=== PATIENT | male | born 1965 | race Caucasian/White ===

== ENCOUNTER 2025-06-10 12:39 | Emergency (ER) | payer BC, SELFPAY ==
[2025-06-10] VITALS (7 sets, daily range): BP systolic 104–132; BP diastolic 68–87; BMI 24.9
--- NOTE | 2025-06-10 13:18 | ED.GENMED ---
History of Present Illness
General
Chief Complaint: Chest Pain
Source: patient
Exam Limitations: none
Time Seen by Provider: 06/10/25 13:14
Nursing documentation reviewed up to this point in time: agreed with
History of Present Illness
History of Present Illness:
Patient is a 59-year-old male with past medical history of STEMI status post RCA drug-eluting stent in 2015, hypothyroidism, bradycardia PVCs presents to the ER for evaluation. Patient reports Tuesday 2 days ago he was playing Zoomingo ball and has
noted himself slightly more than normal. He did feel little lightheaded when his heart rate went up. After playing he had a sensation that 'my heart was there.' He reports it was not a pain but he was just aware that 'Something felt
different.' He denies any associated shortness of breath, nausea ,vomiting, diaphoresis with this. He denies any injury. No prior history of PE DVT. No lower extremity swelling. No clotting disorder.
He denies any recent illness fever or chills. He is asymptomatic presently.
His cardiac stent was done in 2015 at [facility]. At that time he had heartburn sensation is not similar to his prior ND .
He is followed by [facility] Dr. Nj.
Past History
Past History
ED Past Medical History: Cancer (prostate cancer s/p radical prostatectomy), HTN, Hypercholesterolemia, ND and Hypothyroidism
ED Past Surgical History: Other (radical prostatectomy)
Social History
Tobacco: Non-smoker
Alcohol: None
Drug: None
Personal:
Living: with family
Employment: Employed
Family History
Family History: CAD
Phy Exam
General Physical Exam
General Presentation: no apparent distress
General age: appears stated age
General Skin: warm and dry
General Habitus: normal
General Mental: alert
General Hydration: appears well hydrated
Cardiovascular Exam
Cardiovascular Exam: no murmur, normal peripheral pulses and bradycardia
Pulmonary Exam
Pulmonary Exam: lungs clear and no respiratory distress
Neurological Exam
Neurological Exam: alert and oriented x3
Musculoskeletal Exam
Musculoskeletal Exam: full ROM
Skin Exam
Skin Exam: normal color and warm/dry
Psychiatric Exam
Psychiatric Exam: normal mood/affect
Scores
Heart Score for Chest Pain Patients
STEMI patient?: Not applicable
Course
Orders/Labs/Results
Orders:
Orders
06/10/25 12:48
Electrocardiogram (*1) Urgent
Reason for Study: Chest Pain
EKG- Treatment ONCE
06/10/25 13:09
Electrocardiogram (*1) Stat
Comment: ALREADY DONE IN ED
06/10/25 13:38
Complete Blood Count/With Diff Urgent
Comprehensive Metabolic Panel Urgent
PTT Urgent
Troponin I Urgent
06/10/25 13:53
Chest [CR Chest - 2 Views ] Urgent
Comment:
Reason For Exam: cp
06/10/25 15:11
EKG- Treatment ONCE
06/10/25 16:27
Troponin I Urgent
06/10/25 16:30
Electrocardiogram (*1) Urgent
Reason for Study: Chest Pain
Abnormal Lab Results
06/10/25
13:38
WBC 4.4 L 10^3/uL
(4.8-10.8)
Absolute Lymphs (auto) 0.9 L 10^3/uL
(1.2-3.4)
Lymphocytes % 19.9 L %
(20.5-51.1)
06/10/25 13:38
06/10/25 13:38
Vital Signs
Initial and Last Documented VS:
Initial Vital Signs
Temp Pulse Resp BP Pulse Ox
98.5 F 46 16 132/87 98
06/10/25 12:46 06/10/25 12:46 06/10/25 12:46 06/10/25 12:46 06/10/25 12:46
Last Documented Vital Signs
Temp Pulse Resp BP Pulse Ox
98.5 F 50 19 109/71 98
06/10/25 12:46 06/10/25 15:45 06/10/25 15:45 06/10/25 15:00 06/10/25 13:21
[employer] consulted with Physician
[employer] Worker consulted with physician?: Yes
Name of Physician Consulted: Pebbles
MDM/Problems Addressed
Differential Diagnosis Includes:
Not limited to ACS, musculoskeletal chest pain less likely PE ( pt with no sob )
MDM/Problems Addressed:
As documented patient is a 59-year-old male with history of stent placed 2015 presents to the ER for evaluation. Patient has had vague sensation in his chest since Tuesday but denies any actual pain. He reports this is different than when he had
his ND previously. At that time he had burning in his chest. He denies any associated shortness of breath. With his history he was concerned and presented to the ER. He has been asymptomatic here in the ER no acute distress no associated
shortness of breath or nausea vomiting diaphoresis with symptoms. He has had 2 negative cardiac troponins. He has a history of bradycardia and has been in the high 40s to 50s here but this is not new. Patient is well-appearing no concerning
findings today however will DC with outpatient chest pain hotline.
*Radiology
Radiology exam reviewed: radiology read reviewed
*Pulse Oximetry
SaO2: 98
Oxygen Mode of Delivery: Room air
Patient hypoxic: no
*EKG
Interpreted by ED Provider?: Yes
Comparison EKG: no changes
Heart Rate: 47
Rate: bradycardiac
Rhythm: sinus
Ischemia: no ischemia
*Critical Care Note
Total Time (30-74mins, 75-104mins- exclusive of procedures): Not Applicable
Data Reviewed
Review of Other/Old Records Reveals: Other (Stress echo reviewed from [facility] a normal stress echocardiogram)
ED Attending Note
-
Portions of this chart may have been created with voice recognition software.� Occasional wrong word or��sound alike� substitutions may have occurred due to the inherent limitations of voice recognition software.
Discharge Plan
Departure
Patient Disposition: Home (Routine Discharge)
Date of Disposition: 06/10/25
Time of Disposition: 17:22
Patient with high blood pressure during this ER visit?: No
Condition: Fair
Covid-19: Not Applicable
Discharge Problem:
Chest pain
Instructions: Chest Pain DCA Follow Up
Prescriptions:
No Action
levothyroxine 88 MCG tablet
112 mcg PO DAILY
lisinopril 2.5 MG tablet
2.5 mg PO DAILY
atorvastatin 40 MG tablet
40 mg PO QPM
aspirin [Aspir-Low] 81 MG tablet,delayed release (DR/EC)
81 mg PO DAILY
Cialis
1 tab PO DAILY PRN (Reason: .as directed)
cholecalciferol (vitamin D3) [Vitamin D3] 50 mcg (2,000 unit) Tablet
50 mcg PO DAILY
Fish Oil
1 tab PO DAILY
Referrals:
Rusty Nj MD [Active, Cardiology]
Montez Rodriguez MD [Family Provider, Family Practice]
Activity Restrictions/Additional Instructions:
As discussed please follow-up with cardiology. You were placed on the chest pain hotline. You should receive a phone call from the office in the next several days however if you do not please call the office to schedule an appointment as soon as
possible. Avoid exercise until cleared by cardiology. Return if any worsening of symptoms.
Interventions
Interventions:
*Risk Screen - Suicide Last Done: 06/10/25 12:46
*General Assessment Last Done: 06/10/25 12:46
*Neglect/Abuse Screening Last Done: 06/10/25 13:53
*ED COVID-19 Vaccine History Last Done: 06/10/25 13:53
*ED Influenza Vaccine History Last Done: 06/10/25 13:53
[facility] Fall Risk Assessment Tool Last Done: 06/10/25 13:22
ED- Cardiac Assessment Last Done: 06/10/25 13:57
Discharge Date and Time
Print Language: SWISS
[2025-06-10 13:57] LABS: Hematocrit 40.4 % (39.0-52.0); Hemoglobin 14.4 g/dL (13.0-18.0); Mean Corp Hgb Conc. 35.6 g/dL (33.0-37.0); Mean Corpuscular Volume 83.5 fL (80.0-94.0); Nucleated Red Blood Cells % 0 % (-); Platelet Count 182 10^3/uL (130-400); Red Cell Dist. Width 12.2 % (11.5-14.5)
[2025-06-10 14:07] LABS: APTT 29.1 Sec (23.4-35.0)
[2025-06-10 14:11] LABS: ALT (SGPT) 38 U/L (0-50); AST (SGOT) 36 U/L (17-59); Albumin 4.6 g/dl (3.5-5.0); Alkaline Phosphatase 95 U/L (38-126); Blood Urea Nitrogen 18 mg/dl (9-20); Calcium 9.0 mg/dl (8.4-10.2); Carbon Dioxide 28 mmol/L (22-30); Chloride 102 mmol/L (98-107); Estimated Creatinine Clearance 93 ml/min; Glucose 94 mg/dl (70-99); Potassium 4.2 mmol/L (3.5-5.1); Sodium 137 mmol/L (135-145); Total Protein 7.1 g/dl (6.3-8.2); eGFR > 60.00
[2025-06-10 14:23] LABS: Troponin I < 0.012 ng/ml
[2025-06-10 16:59] LABS: Troponin I < 0.012 ng/ml
== END 2025-06-10 17:37 | disposition home or self-care (01) ==
LOC: EMR 12:39
PROVIDERS: Nurse Practitioner; Student in an Organized Health Care Education/Training Program; EMERGENCY PHYSICIAN Emergency Medicine; FAMILY PHYSICIAN Family Medicine
DX: R07.89 Other chest pain (principal); I25.2 Old myocardial infarction; E03.9 Hypothyroidism, unspecified; E78.00 Pure hypercholesterolemia, unspecified; I10 Essential (primary) hypertension; R00.1 Bradycardia, unspecified; I49.3 Ventricular premature depolarization; Z82.49 Family history of ischemic heart disease and other diseases of the circulatory system; Z90.79 Acquired absence of other genital organ(s); Z95.5 Presence of coronary angioplasty implant and graft
CPT/HCPCS: 99283; 71046; 80053; 84484; 85025; 85730; 93005

== ENCOUNTER → 2025-07-03 08:16 | Outpatient (REF) | payer BC, SELFPAY | LOC: RCS 08:16 | PROVIDERS: ATTENDING PHYSICIAN Physician Assistant; FAMILY PHYSICIAN Family Medicine | DX: I25.10 Atherosclerotic heart disease of native coronary artery without angina pectoris (principal); R00.2 Palpitations; R07.9 Chest pain, unspecified | CPT/HCPCS: 93017; 93350 ==